=== PATIENT | female | born 1960 | race Hispanic/Latino ===

== ENCOUNTER 2018-10-28 14:49 | Outpatient (CLI) | payer OTHER ==
--- NOTE | 2018-10-29 08:29 | MMO ---
BILATERAL MAMMOGRAMS: HISTORY: Screening mammography. COMPARISON: No comparison available. Baseline study. FINDINGS: Heterogeneously dense fibroglandular tissue is present. No dominant mass or suspicious calcification s. The study was evaluated with the assistance of computer-aided detection. IMPRESSION: BI-RADS category 1. Negative. Suggest routine followup. BIRADS 1: Negative Routine annual screening mammography (for women over age 40) POS: [facility]
== END 2018-10-28 14:50 | disposition home or self-care (01) ==
LOC: SCSMAMMO 14:49
PROVIDERS: ATTEND Internal Medicine
DX: Z12.31 Encounter for screening mammogram for malignant neoplasm of breast (principal)
CPT/HCPCS: 77067